=== PATIENT | male | born 1960 | race Two or more races ===

== ENCOUNTER 2024-10-01 13:06 | Outpatient (RCR) | payer OTHER, SELFPAY | END 2024-10-27 23:59 | disposition home or self-care (01) | LOC: SCTC 13:06 | PROVIDERS: PCP Specialist; Referring Provider Specialist; Visit Provider Radiology Therapeutic Radiology | DX: Z51.11 Encounter for antineoplastic chemotherapy (principal); C61 Malignant neoplasm of prostate; Z90.79 Acquired absence of other genital organ(s); Z92.3 Personal history of irradiation | CPT/HCPCS: 96402; J9217 ==

== ENCOUNTER → 2024-11-01 | Outpatient (CLI) | payer OTHER, SELFPAY ==
[2024-11-01 16:11] LABS: Basophils # (Auto) 0.1 Thou/mm3 (0.0-0.2); Basophils % (Auto) 1 % (0-2.5); Eosinophils # (Auto) 0.1 Thou/mm3 (0.0-0.5); Eosinophils % (Auto) 1 % (0-10); Hematocrit 36.8 % (41.0-53.0); Hemoglobin 12.6 g/dL (13.5-16.0); Immature Granulocytes % (Auto) 0 % (0-0); Immature Granulocytes Auto 0.01 Thou/mm3 (0.00-0.00); Lymphocytes # (Auto) 1.4 Thou/mm3 (1.0-4.8); Lymphocytes % (Auto) 17 % (10-50); Mean Corpuscular HGB Conc 34.2 g/dl (31.0-37.0); Mean Corpuscular Hemoglobin 29.6 pg (25.0-35.0); Mean Corpuscular Volume 87 fL (80-100); Monocytes # (Auto) 0.6 Thou/mm3 (0.0-0.8); Monocytes % (Auto) 8 % (0-12); Neutrophils # (Auto) 5.7 Thou/mm3 (1.8-7.7); Neutrophils % (Auto) 73 % (37-80); Nucleated Red Blood Cell % 0 /100 WBC (0); Platelet Count 228 Thou/mm3 (140-440); RDW Standard Deviation 38.7 fL (35.1-43.9); Red Blood Count 4.25 Miln/mm3 (4.50-5.90); White Blood Count 7.8 Thou/mm3 (3.8-10.6)
[2024-11-01 16:29] LABS: Alanine Aminotransferase 12 U/L (10-49); Albumin, Serum 4.3 gm/dL (3.4-4.8); Albumin/Globulin Ratio 2.2 (1.2-2.2); Alkaline Phosphatase 82 U/L (46-116); Anion Gap 8 (7-16); Aspartate Amino Transferase 20 U/L (0-34); BUN/Creatinine Ratio 17 Ratio (12-20); Bilirubin,Total 0.4 mg/dL (0.3-1.2); Blood Urea Nitrogen 17 mg/dL (9-23); Calcium 9.6 mg/dL (8.3-10.6); Calcium (Corrected) 9.6 mg/dL (8.5-10.1); Carbon Dioxide 27.2 mMol/L (20.0-31.0); Chloride 105 mMol/L (98-107); Glucose 100 mg/dL (74-106); Osmolality,Calculated 280 (275-295); Potassium 4.5 mMol/L (3.4-5.1); Prostate Specific Antigen < 0.10 ng/mL (0-4.00); Sodium 140 mMol/L (136-145); Total Protein 6.3 gm/dL (5.7-8.2); eGFR > 60 See Note
== END | disposition home or self-care (01) ==
LOC: SCTO 15:08
PROVIDERS: PCP Student in an Organized Health Care Education/Training Program; Referring Provider Internal Medicine Hematology & Oncology; Visit Provider Internal Medicine Hematology & Oncology
DX: C61 Malignant neoplasm of prostate (principal)
CPT/HCPCS: 36415; 80053; 84153; 85025

== ENCOUNTER 2024-11-05 10:17 | Outpatient (RCR) | payer OTHER, SELFPAY | END 2024-11-27 23:59 | disposition home or self-care (01) | LOC: SCTC 10:17 | PROVIDERS: Referring Provider Nurse Practitioner Family; Visit Provider Nurse Practitioner Family | DX: C61 Malignant neoplasm of prostate (principal); Z90.79 Acquired absence of other genital organ(s); Z92.3 Personal history of irradiation; Z79.818 Long term (current) use of other agents affecting estrogen receptors and estrogen levels; R42 Dizziness and giddiness; R51.9 Headache, unspecified | CPT/HCPCS: 99212; G0463 ==

== ENCOUNTER → 2024-12-20 | Outpatient (CLI) | payer BC, SELFPAY ==
--- NOTE | 2024-12-20 13:20 | XR_ITS ---
Examination: Bone densitometry Date and time of exam:December 20, 2024 1330 hours INDICATIONS: 64-year-old male with diagnosis age related osteoporosis, prednisone 4 years, prostate carcinoma diagnosis Technique: Lumbar spine and hip total bone mineralization values of an calculated. Peak reference and age match control results have been displayed. Findings: Lumbar spine total bone mineralization is1.022 gm/cm2. This is 0.6 standard deviations below peak reference. This is 0.1 standard deviations above age-matched controls. Hip total bone mineralization is 1.040 gm/cm2 This is 0.1 standard deviations below peak reference. This is 0.4 standard deviations above age-matched controls Impression: There is normal mineralization based on lumbar spine measurements. There is osteopenia based on hip measurements
== END | disposition home or self-care (01) ==
LOC: CDIM 13:09
PROVIDERS: Referring Provider Nurse Practitioner Family; Visit Provider Nurse Practitioner Family
DX: M85.88 Other specified disorders of bone density and structure, other site (principal)
CPT/HCPCS: 77080

== ENCOUNTER → 2024-12-26 | Outpatient (CLI) | payer BC, SELFPAY ==
[2024-12-26 13:24] LABS: Prostate Specific Antigen < 0.10 ng/mL (0-4.00)
[2024-12-26 13:36] LABS: Alanine Aminotransferase 9 U/L (10-49); Albumin, Serum 4.3 gm/dL (3.4-4.8); Alkaline Phosphatase 100 U/L (46-116); Anion Gap 7 (7-16); Aspartate Amino Transferase 12 U/L (0-34); BUN/Creatinine Ratio 16 Ratio (12-20); Bilirubin,Total 0.5 mg/dL (0.3-1.2); Blood Urea Nitrogen 16 mg/dL (9-23); Calcium 9.4 mg/dL (8.3-10.6); Calcium (Corrected) 9.4 mg/dL (8.5-10.1); Carbon Dioxide 28.1 mMol/L (20.0-31.0); Chloride 104 mMol/L (98-107); Globulin 2.1 gm/dL (2.3-3.5); Glucose 98 mg/dL (74-106); Osmolality,Calculated 278 (275-295); Potassium 4.2 mMol/L (3.4-5.1); Sodium 139 mMol/L (136-145); Total Protein 6.4 gm/dL (5.7-8.2); eGFR > 60 See Note
[2024-12-26 13:56] LABS: Basophils # (Auto) 0.1 Thou/mm3 (0.0-0.2); Basophils % (Auto) 1 % (0-2.5); Eosinophils # (Auto) 0.1 Thou/mm3 (0.0-0.5); Eosinophils % (Auto) 1 % (0-10); Hematocrit 38.3 % (41.0-53.0); Hemoglobin 12.9 g/dL (13.5-16.0); Immature Granulocytes % (Auto) 0 % (0-0); Immature Granulocytes Auto 0.02 Thou/mm3 (0.00-0.00); Lymphocytes # (Auto) 1.2 Thou/mm3 (1.0-4.8); Lymphocytes % (Auto) 14 % (10-50); Mean Corpuscular HGB Conc 33.7 g/dl (31.0-37.0); Mean Corpuscular Volume 89 fL (80-100); Monocytes # (Auto) 0.6 Thou/mm3 (0.0-0.8); Monocytes % (Auto) 7 % (0-12); Neutrophils # (Auto) 6.4 Thou/mm3 (1.8-7.7); Neutrophils % (Auto) 77 % (37-80); Nucleated Red Blood Cell % 0 /100 WBC (0); Platelet Count 256 Thou/mm3 (140-440); RDW Standard Deviation 39.5 fL (35.1-43.9); White Blood Count 8.3 Thou/mm3 (3.8-10.6)
== END | disposition home or self-care (01) ==
LOC: SCTO 12:26
PROVIDERS: PCP Student in an Organized Health Care Education/Training Program; Referring Provider Internal Medicine Hematology & Oncology; Visit Provider Internal Medicine Hematology & Oncology
DX: C61 Malignant neoplasm of prostate (principal)
CPT/HCPCS: 36415; 80053; 84153; 85025

== ENCOUNTER 2025-01-08 13:21 | Outpatient (RCR) | payer BC, SELFPAY ==
--- NOTE | 2025-01-09 15:31 | CTCFLWUP_ITS ---
Patient: DIRK BARGER : 1960 Page 2 of 2 FOLLOW UP NOTE DATE OF SERVICE: 01/08/2025 NAME: DIKR BARGER ACCOUNT: [id number] : 1960 AGE: 64 INTERVAL HISTORY: Patient denies any new complaints. Tolerating treatment well. ONCOLOGY HISTORY: DIAGNOSIS: Malignant neoplasm of prostate [ICD10] C61 Stage SARINA, pT3b, N1 Eric score 9 adenocarcinoma the prostate status post robotic radical prostatectomy (04/22/2020). Extraprostatic extension present. Lymphovascular as well as perineural invasion present. Margins positive. Urinary bladder neck invasion present. Left seminal vesicle invasion present. Status post radiation therapy. Currently patient is on Lupron, Zytiga and prednisone (06/10/2020?). DATE OF DIAGNOSIS: 04/22/2020 STAGE/TNM: Stage SARINA, pT3b, N1 Eric score 9 adenocarcinoma the prostate status post robotic radical prostatectomy TREATMENT HISTORY: Care?Plan Start?Date Cycle Day Intent Lupron?22.5?mg?q?3?mon 09/02/2020 1 90 Palliative PROLia?60mg?every?6?months 01/01/2025 1 180 Palliative HISTORY OF PRESENT ILLNESS: Mr. Barger is here at [facility] cancer Center. Labs from 11/01/2024 show PSA <0.10. Patient is receiving Lupron every 3 months, Zytiga taking Zytiga 250 mg daily and prednisone 5 mg daily. Patient has follow-up with neurologist on 11/07/2024 for complaints of dizziness and headaches for a long time. Denies any new complaints. Mr. Barger denies any cough or chest pain. HISTORY: Dirk Barger is a 64-year-old [place] speaking male without any significant past medical history has the following oncology history. Patient recently had routine screening PSA done by Dr. Angela Nation. He was found to have an elevated PSA of 60. 04/22/2020: Patient had robotic radical prostatectomy with bilateral extended lymph node dissection at [facility] by Dr. Kvng Rich. Pathology showed stage Sarina [place] score 9 prostate cancer as described below. PSA trend: 06/09/2020: Less than 0.10. 08/13/2020: PSA less than 0.10. 06/09/2020?07/30/2020: Patient received 6840 cGy radiation to prostate. 06/10/2020: Patient received first Lupron 22.5 mg IM at [facility]. 06/16/2020: Patient is started on Zytiga and prednisone. 07/01/2020: Bone scan? x-ray of left shoulder?5 mm sclerotic focus in the left humeral neck. 12/01/2020: PSA less than 0.10. 12/04/2020: Patient received Eligard 22.5 mg subcu. 02/27/2021: PSA less than 0.10. 03/04/2021: Patient received Eligard 22.5 mg subcu. 05/20/2021: PSA less than 0.10 06/03/2021: Patient received Lupron 22.5 mg IM. 08/31/2021: PSA less than 0.10. 11/19/2021: PSA less than 0.10. 02/24/2021: PSA less than 0.10. 09/13/2022 PSA less than 0.00 03/23/2023: PSA less than 0.10. 09/14/2023: PSA less than 0.10. 02/01/2024: PSA less than 0.10. 02/16/2024: CT scan of the abdomen and pelvis with IV contrast 06/21/2024: PSA less than 0.10 08/01/2024: Bone scan? 08/10/2024: X-ray lumbar spine-negative for osteoblastic disease 08/17/2024: MRI left shoulder-no findings of osseous metastatic disease 11/05/2024: PSA less than 0.10 OTHER MEDICAL HISTORY/CONDITIONS: FAMILY HISTORY: ?Clone Family Hx? SOCIAL HISTORY: MEDICATIONS: 1. Leydi - 30 mg 1 tab Daily 2. Citracal + D Slow Release - 600 mg-12.5 mcg (500 unit) 1 tab one tab po twice a day 3. omeprazole - 20 mg 1 Daily 4. prednisone - 5 mg 1 tab 1 tab po q daily 5. TylenoL - 500 mg 1 Capsule As needed 6. Vitamin B12 - 100 mcg 1 tab Daily 7. vitamin E (dl, acetate) - 450 mg (1,000 unit) 1 Capsule Daily 8. Zytiga - 250 mg 1 tab once daily?[place]ra Meds? Medications Last Reconciled by Brenda Amor MA on 01/08/2025 ALLERGIES: No Known Allergies REVIEW OF SYSTEMS: A complete 14-point review of systems was performed and is negative except as noted in interval history. PHYSICAL EXAMINATION:?CloneBlock PE? VITAL SIGNS: Temperature?98.2, B/P?149/98, Oxygen?Saturation?98% Weight?204?lbs (Change?since?01/01/25:?1.2?lbs) PAIN: 2 - Mild pain ECOG Performance Status: 0 - Asymptomatic and fully active Neuro: Alert and oriented x 4 Conjunctiva white. Neck is supple. No adenopathy. Chest clear to auscultation. CVS rhythm regular. Abdomen is soft. No tenderness Extremities no clubbing . LABORATORY DATA: I have personally reviewed and interpreted each of the patient?s relevant lab tests, abnormal findings are below: Date 12/26/24 ??GLUCOSE,RANDOM?(mg/dL) 98 ??BLOOD?UREA?NITROGEN?(mg/dL) 16 ??CREATININE?(mg/dL) 1.00 ??SODIUM?(mmol/L) 139 ??POTASSIUM?(mmol/L) 4.2 ??CHLORIDE?(mmol/L) 104 ??CrCl?(CandG)?(ml/min) 97.02 ??AST/SGOT?(Unit/L) 12 ??ALT/SGPT?(Unit/L) 9?L ??ALKALINE?PHOSPHATASE?(Unit/L) 100 ??BILIRUBIN,?TOTAL?(mg/dL) 0.5 ??PROTEIN?TOTAL?(gm/dl) 6.4 ??ALBUMIN,?SERUM?(gm/dl) 4.3 ??GLOBULIN?(gm/dl) 2.1?L ??ALBUMIN/GLOBULIN?RATIO 2.0 ??CALCIUM,?SERUM?(mg/dL) 9.4 ??CALCIUM?SERUM?(CORRECTED)?(mg/dL) 9.4 ASSESSMENT/PLAN: #1Stage SARINA, pT3b, N1 [place] score 9 adenocarcinoma the prostate status post robotic radical prostatectomy (04/22/2020). Extraprostatic extension present. Lymphovascular as well as perineural invasion present. Margins positive. Urinary bladder neck invasion present. Left seminal vesicle invasion present. Status post radiation therapy to the prostate bed as described above. Patient received Lupron 22.5 mg IMCT scan of the abdomen and pelvis with contrast was negative for metastatic disease. PSA is less than 0.10. Currently he is on Lupron 22.5 mg every 3 months, Zytiga 250 mg p.o. daily as well as prednisone 5 mg p.o. daily..The patient stopped Zytiga and prednisone 3 weeks ago due to dizziness and fatigue. Unfortunately those symptoms have not gotten any better Zytiga and prednisone was restarted Patient has been on and off therapy since 2019 Patient did not had disease involving bone or any metastatic disease His indication for treatment will be for maximum 2 years Discussed with Mr. Barger and will stop Zytiga prednisone Lupron Patient can continue Prolia Continue to monitor Mr. Barger with a CBC CMP PSA CBC CMP PSA every 2 months Continue Prolia RETURN TO CLINIC: I will see him back in the clinic in 2 months. Patient can be given every 3 months appointment at the next visit for 1 year followed by every 6-month visit for 5 years for active surveillance BILLING AND COMPLIANCE: I reviewed external records from providers outside my specialty as summarized above. I spent a total of 50 minutes on this patient?s care on the day of their visit excluding time spent related to any billed procedures. This time includes time spent with the patient as well as time spent documenting in the medical record, reviewing patients records and tests, obtaining history, placing orders, communicating with other healthcare professionals, counseling the patient, family or caregiver, and/or care coordination for the diagnoses above. Electronically Signed by: Ivan Parker MD T: 3:29 PM CC: Kavin?Rios? PCP: No Primary/family, Physician Referring: Ivan Parker This document was completed utilizing speech recognition software. Grammatical errors, random word insertions, pronoun errors, and incomplete sentences are an occasional consequence of this system due to software limitations, ambient noise, and hardware issues. Any formal questions or concerns about the content, text or information contained within the body of this dictation should be directly addressed to the provider for clarification.
== END 2025-01-25 23:59 | disposition home or self-care (01) ==
LOC: SCTC 13:21
PROVIDERS: Referring Provider Internal Medicine Hematology & Oncology; Visit Provider Internal Medicine Hematology & Oncology
DX: Z51.11 Encounter for antineoplastic chemotherapy (principal); C61 Malignant neoplasm of prostate; Z90.79 Acquired absence of other genital organ(s); Z79.818 Long term (current) use of other agents affecting estrogen receptors and estrogen levels; Z92.3 Personal history of irradiation
CPT/HCPCS: 96402; 99213; J9217; G0463

== ENCOUNTER 2025-02-11 13:48 | Outpatient (RCR) | payer BC, SELFPAY ==
--- NOTE | 2025-03-03 19:55 | CTCFLWUP_ITS ---
Patient: DIRK BARGER : 1960 Page 5 of 7 FOLLOW UP NOTE DATE OF SERVICE: 02/11/2025 NAME: DIRK BARGER ACCOUNT: [id number] : 1960 AGE: 64 INTERVAL HISTORY: Patient denies any new complaints. Tolerating treatment well. ONCOLOGY HISTORY: DIAGNOSIS: Malignant neoplasm of prostate [ICD10] C61 Stage SARINA, pT3b, N1 Eric score 9 adenocarcinoma the prostate status post robotic radical prostatectomy (04/22/2020). Extraprostatic extension present. Lymphovascular as well as perineural invasion present. Margins positive. Urinary bladder neck invasion present. Left seminal vesicle invasion present. Status post radiation therapy. Currently patient is on Lupron, Zytiga and prednisone (06/10/2020?). DATE OF DIAGNOSIS: 04/22/2020 STAGE/TNM: Stage SARINA, pT3b, N1 Eric score 9 adenocarcinoma the prostate status post robotic radical prostatectomy TREATMENT HISTORY: Care?Plan Start?Date Cycle Day Intent Lupron?22.5?mg?q?3?mon 09/02/2020 1 90 Palliative PROLia?60mg?every?6?months 01/01/2025 1 180 Palliative Reclast 01/17/2025 1 365 Palliative HISTORY OF PRESENT ILLNESS: Mr. Barger is here at [facility]. Labs from 11/01/2024 show PSA <0.10. Patient is receiving Lupron every 3 months, Zytiga taking Zytiga 250 mg daily and prednisone 5 mg daily. Patient has follow-up with neurologist on 11/07/2024 for complaints of dizziness and headaches for a long time. Denies any new complaints. Mr. Barger denies any cough or chest pain. HISTORY: Dirk Barger is a 64-year-old [place] speaking male without any significant past medical history has the following oncology history. Patient recently had routine screening PSA done by Dr. Angela Nation. He was found to have an elevated PSA of 60. 04/22/2020: Patient had robotic radical prostatectomy with bilateral extended lymph node dissection at [facility] by Dr. Kvng Rich. Pathology showed stage Sarina [place] score 9 prostate cancer as described below. PSA trend: 06/09/2020: Less than 0.10. 08/13/2020: PSA less than 0.10. 06/09/2020?07/30/2020: Patient received 6840 cGy radiation to prostate. 06/10/2020: Patient received first Lupron 22.5 mg IM at [facility]. 06/16/2020: Patient is started on Zytiga and prednisone. 07/01/2020: Bone scan? x-ray of left shoulder?5 mm sclerotic focus in the left humeral neck. 12/01/2020: PSA less than 0.10. 12/04/2020: Patient received Eligard 22.5 mg subcu. 02/27/2021: PSA less than 0.10. 03/04/2021: Patient received Eligard 22.5 mg subcu. 05/20/2021: PSA less than 0.10 06/03/2021: Patient received Lupron 22.5 mg IM. 08/31/2021: PSA less than 0.10. 11/19/2021: PSA less than 0.10. 02/24/2021: PSA less than 0.10. 09/13/2022 PSA less than 0.00 03/23/2023: PSA less than 0.10. 09/14/2023: PSA less than 0.10. 02/01/2024: PSA less than 0.10. 02/16/2024: CT scan of the abdomen and pelvis with IV contrast 06/21/2024: PSA less than 0.10 08/01/2024: Bone scan? 08/10/2024: X-ray lumbar spine-negative for osteoblastic disease 08/17/2024: MRI left shoulder-no findings of osseous metastatic disease 11/05/2024: PSA less than 0.10 OTHER MEDICAL HISTORY/CONDITIONS: FAMILY HISTORY: SOCIAL HISTORY: MEDICATIONS: 1. Leydi - 30 mg 1 tab Daily 2. Flonase - 50 mcg/actuation As directed 3. omeprazole - 20 mg 1 Daily 4. prednisone - 5 mg 1 tab 1 tab po q daily 5. TylenoL - 500 mg 1 Capsule As needed 6. Zytiga - 250 mg 1 tab once daily Medications Last Reconciled by Inessa Lazaro MA on 02/11/2025 ALLERGIES: No Known Allergies REVIEW OF SYSTEMS: A complete 14-point review of systems was performed and is negative except as noted in interval history. PHYSICAL EXAMINATION: VITAL SIGNS: Temperature?98.7, B/P?130/81, Oxygen?Saturation?98% Weight?204.8?lbs PAIN: 0 - No pain ECOG Performance Status: None Neuro: Alert and oriented x 4 Conjunctiva white. Neck is supple. No adenopathy. Chest clear to auscultation. CVS rhythm regular. Abdomen is soft. No tenderness Extremities no clubbing . LABORATORY DATA: I have personally reviewed and interpreted each of the patient?s relevant lab tests, abnormal findings are below: Date 11/01/24 12/26/24 ??WHITE?BLOOD?COUNT?(Thou/mm3) 7.8 8.3 ??RED?BLOOD?COUNT?(Miln/mm3) 4.25?L 4.30?L ??HEMOGLOBIN?(gm/dl) 12.6?L 12.9?L ??HEMATOCRIT?(%) 36.8?L 38.3?L ??PLATELET?COUNT?(Thou/mm3) 228 256 ??NEUTROPHILS?%,?AUTO?(%) 73 77 ??LYMPH?%,?AUTO?(%) 17 14 ??NEUTROPHILS,?AUTO?(Thou/mm3) 5.7 6.4 ??GLUCOSE,RANDOM?(mg/dL) 100 98 ??BLOOD?UREA?NITROGEN?(mg/dL) 17 16 ??CREATININE?(mg/dL) 1.00 1.00 ??SODIUM?(mmol/L) 140 139 ??POTASSIUM?(mmol/L) 4.5 4.2 ??CHLORIDE?(mmol/L) 105 104 ??CrCl?(CandG)?(ml/min) 99.35 97.02 ??AST/SGOT?(Unit/L) 20 12 ??ALT/SGPT?(Unit/L) 12 9?L ??ALKALINE?PHOSPHATASE?(Unit/L) 82 100 ??BILIRUBIN,?TOTAL?(mg/dL) 0.4 0.5 ??PROTEIN?TOTAL?(gm/dl) 6.3 6.4 ??ALBUMIN,?SERUM?(gm/dl) 4.3 4.3 ??GLOBULIN?(gm/dl) 2.0?L 2.1?L ??ALBUMIN/GLOBULIN?RATIO 2.2 2.0 ??CALCIUM,?SERUM?(mg/dL) 9.6 9.4 ??CALCIUM?SERUM?(CORRECTED)?(mg/dL) 9.6 9.4 ASSESSMENT/PLAN: #1Stage SARINA, pT3b, N1 [place] score 9 adenocarcinoma the prostate status post robotic radical prostatectomy (04/22/2020). Extraprostatic extension present. Lymphovascular as well as perineural invasion present. Margins positive. Urinary bladder neck invasion present. Left seminal vesicle invasion present. Status post radiation therapy to the prostate bed as described above. Patient received Lupron 22.5 mg IMCT scan of the abdomen and pelvis with contrast was negative for metastatic disease. PSA is less than 0.10. Currently he is on Lupron 22.5 mg every 3 months, Zytiga 250 mg p.o. daily as well as prednisone 5 mg p.o. daily..The patient stopped Zytiga and prednisone 3 weeks ago due to dizziness and fatigue. Unfortunately those symptoms have not gotten any better Zytiga and prednisone was restarted Patient has been on and off therapy since 2019 Patient did not had disease involving bone or any metastatic disease His indication for treatment will be for maximum 2 years Discussed with Mr. Barger and will stop Zytiga prednisone Lupron Patient can continue Prolia Continue to monitor Mr. Barger with a CBC CMP PSA Counselled patient and daughter that n further treatment indicated CBC CMP PSA every 2 months Continue Prolia ORDERS: Order # Description [id number] Comprehensive Metabolic Panel - 12 + CBC with Auto Diff + PSA + MD Follow Up 3 Months [id number] CBC + Comprehensive Metabolic Panel [id number] Lab Appointment [id number] CBC + Comprehensive Metabolic Panel [id number] Lab Appointment [id number] CBC + Comprehensive Metabolic Panel [id number] Lab Appointment [id number] CBC + Comprehensive Metabolic Panel [id number] Lab Appointment [id number] CBC + Comprehensive Metabolic Panel [id number] Lab Appointment RETURN TO CLINIC: BILLING AND COMPLIANCE: I reviewed external records from providers outside my specialty as summarized above. I spent a total of 50 minutes on this patient?s care on the day of their visit excluding time spent related to any billed procedures. This time includes time spent with the patient as well as time spent documenting in the medical record, reviewing patients records and tests, obtaining history, placing orders, communicating with other healthcare professionals, counseling the patient, family or caregiver, and/or care coordination for the diagnoses above. Electronically Signed by: {Object.Sanct_ID*[email or web address]@M}, {Object.Sanct_ID*[email or web address]@U} D: {Object.Sanct_Date} T: {Object.Sanct_Time} CC: Kavin?Rios,? PCP: No Primary/family, Physician Referring: Ivan Parker This document was completed utilizing speech recognition software. Grammatical errors, random word insertions, pronoun errors, and incomplete sentences are an occasional consequence of this system due to software limitations, ambient noise, and hardware issues. Any formal questions or concerns about the content, text or information contained within the body of this dictation should be directly addressed to the provider for clarification.
== END 2025-02-25 23:59 | disposition home or self-care (01) ==
LOC: SCTC 13:48
PROVIDERS: Referring Provider Internal Medicine Hematology & Oncology; Visit Provider Internal Medicine Hematology & Oncology
DX: C61 Malignant neoplasm of prostate (principal); Z90.79 Acquired absence of other genital organ(s); Z92.3 Personal history of irradiation; Z79.818 Long term (current) use of other agents affecting estrogen receptors and estrogen levels
CPT/HCPCS: 99213; G0463

== ENCOUNTER → 2025-03-26 | Outpatient (CLI) | payer BC, SELFPAY ==
[2025-03-26 11:50] LABS: Basophils # (Auto) 0.1 Thou/mm3 (0.0-0.2); Basophils % (Auto) 1 % (0-2.5); Eosinophils # (Auto) 0.2 Thou/mm3 (0.0-0.5); Eosinophils % (Auto) 3 % (0-10); Hematocrit 35.9 % (41.0-53.0); Hemoglobin 12.3 g/dL (13.5-16.0); Immature Granulocytes % (Auto) 0 % (0-0); Immature Granulocytes Auto 0.02 Thou/mm3 (0.00-0.00); Lymphocytes # (Auto) 1.2 Thou/mm3 (1.0-4.8); Lymphocytes % (Auto) 16 % (10-50); Mean Corpuscular HGB Conc 34.3 g/dl (31.0-37.0); Mean Corpuscular Hemoglobin 30.4 pg (25.0-35.0); Mean Corpuscular Volume 89 fL (80-100); Monocytes # (Auto) 0.6 Thou/mm3 (0.0-0.8); Monocytes % (Auto) 9 % (0-12); Neutrophils # (Auto) 5.4 Thou/mm3 (1.8-7.7); Neutrophils % (Auto) 72 % (37-80); Nucleated Red Blood Cell % 0 /100 WBC (0); Platelet Count 245 Thou/mm3 (140-440); Red Blood Count 4.04 Miln/mm3 (4.50-5.90); White Blood Count 7.6 Thou/mm3 (3.8-10.6)
[2025-03-26 12:03] LABS: Alanine Aminotransferase 14 U/L (10-49); Albumin/Globulin Ratio 1.7 (1.2-2.2); Alkaline Phosphatase 83 U/L (46-116); Anion Gap 6 (7-16); Aspartate Amino Transferase 21 U/L (0-34); BUN/Creatinine Ratio 18 Ratio (12-20); Bilirubin,Total 0.4 mg/dL (0.3-1.2); Blood Urea Nitrogen 18 mg/dL (9-23); Calcium 9.1 mg/dL (8.3-10.6); Calcium (Corrected) 9.1 mg/dL (8.5-10.1); Carbon Dioxide 26.9 mMol/L (20.0-31.0); Chloride 106 mMol/L (98-107); Globulin 2.3 gm/dL (2.3-3.5); Glucose 123 mg/dL (74-106); Osmolality,Calculated 280 (275-295); Potassium 4.1 mMol/L (3.4-5.1); Sodium 139 mMol/L (136-145); Total Protein 6.3 gm/dL (5.7-8.2); eGFR > 60 See Note
[2025-03-26 12:09] LABS: Prostate Specific Antigen < 0.00 ng/mL (0-4.00)
== END | disposition home or self-care (01) ==
LOC: SCTO 10:13
PROVIDERS: Referring Provider Internal Medicine Hematology & Oncology; Visit Provider Internal Medicine Hematology & Oncology
DX: C61 Malignant neoplasm of prostate (principal)
CPT/HCPCS: 36415; 80053; 84153; 85025

== ENCOUNTER → 2025-05-13 | Outpatient (CLI) | payer BC, SELFPAY ==
[2025-05-13 13:47] LABS: Basophils # (Auto) 0.1 Thou/mm3 (0.0-0.2); Basophils % (Auto) 1 % (0-2.5); Eosinophils # (Auto) 0.1 Thou/mm3 (0.0-0.5); Eosinophils % (Auto) 2 % (0-10); Hematocrit 35.1 % (41.0-53.0); Immature Granulocytes % (Auto) 1 % (0-0); Immature Granulocytes Auto 0.03 Thou/mm3 (0.00-0.00); Lymphocytes # (Auto) 1.3 Thou/mm3 (1.0-4.8); Lymphocytes % (Auto) 20 % (10-50); Mean Corpuscular HGB Conc 34.2 g/dl (31.0-37.0); Mean Corpuscular Hemoglobin 29.9 pg (25.0-35.0); Mean Corpuscular Volume 88 fL (80-100); Monocytes # (Auto) 0.6 Thou/mm3 (0.0-0.8); Monocytes % (Auto) 9 % (0-12); Neutrophils # (Auto) 4.4 Thou/mm3 (1.8-7.7); Neutrophils % (Auto) 68 % (37-80); Nucleated Red Blood Cell % 0 /100 WBC (0); Platelet Count 247 Thou/mm3 (140-440); RDW Standard Deviation 39.4 fL (35.1-43.9); Red Blood Count 4.01 Miln/mm3 (4.50-5.90); White Blood Count 6.5 Thou/mm3 (3.8-10.6)
[2025-05-13 14:07] LABS: Prostate Specific Antigen < 0.10 ng/mL (0-4.00)
[2025-05-13 14:28] LABS: Alanine Aminotransferase 9 U/L (10-49); Albumin/Globulin Ratio 1.9 (1.2-2.2); Alkaline Phosphatase 89 U/L (46-116); Anion Gap 9 (7-16); Aspartate Amino Transferase 23 U/L (0-34); BUN/Creatinine Ratio 17 Ratio (12-20); Bilirubin,Total 0.3 mg/dL (0.3-1.2); Blood Urea Nitrogen 19 mg/dL (9-23); Calcium 9.1 mg/dL (8.3-10.6); Calcium (Corrected) 9.1 mg/dL (8.5-10.1); Chloride 107 mMol/L (98-107); Creatinine (Component) 1.1 mg/dL (0.6-1.3); Globulin 2.1 gm/dL (2.3-3.5); Glucose 101 mg/dL (74-106); Osmolality,Calculated 287 (275-295); Potassium 4.3 mMol/L (3.4-5.1); Sodium 143 mMol/L (136-145); Total Protein 6.1 gm/dL (5.7-8.2); eGFR > 60 See Note
== END | disposition home or self-care (01) ==
LOC: COPL 11:48 → SCTO 11:56
PROVIDERS: PCP Student in an Organized Health Care Education/Training Program; Referring Provider Internal Medicine Hematology & Oncology; Visit Provider Internal Medicine Hematology & Oncology
DX: C61 Malignant neoplasm of prostate (principal)
CPT/HCPCS: 36415; 80053; 84153; 85025

== ENCOUNTER 2025-05-14 10:37 | Outpatient (RCR) | payer BC, SELFPAY ==
--- NOTE | 2025-06-24 13:00 | CTCFLWUP_ITS ---
Patient: DIRK BARGER : 1960 Page 2 of 2 FOLLOW UP NOTE DATE OF SERVICE: 05/14/2025 NAME: DIRK BARGER ACCOUNT: [id number] : 1960 AGE: 64 INTERVAL HISTORY: Patient denies any new complaints. Tolerating treatment well. ONCOLOGY HISTORY: DIAGNOSIS: Malignant neoplasm of prostate [ICD10] C61 Stage SARINA, pT3b, N1 Eric score 9 adenocarcinoma the prostate status post robotic radical prostatectomy (04/22/2020). Extraprostatic extension present. Lymphovascular as well as perineural invasion present. Margins positive. Urinary bladder neck invasion present. Left seminal vesicle invasion present. Status post radiation therapy. Currently patient is on Lupron, Zytiga and prednisone (06/10/2020?). DATE OF DIAGNOSIS: 04/22/2020 STAGE/TNM: Stage SARINA, pT3b, N1 Eric score 9 adenocarcinoma the prostate status post robotic radical prostatectomy TREATMENT HISTORY: Care?Plan Start?Date Cycle Day Intent Lupron?22.5?mg?q?3?mon 09/02/2020 1 90 Palliative PROLia?60mg?every?6?months 01/01/2025 1 180 Palliative Reclast 01/17/2025 1 365 Palliative HISTORY OF PRESENT ILLNESS: Mr. Barger is here at [facility]. Labs from 11/01/2024 show PSA <0.10. Patient is receiving Lupron every 3 months, Zytiga taking Zytiga 250 mg daily and prednisone 5 mg daily. Patient has follow-up with neurologist on 11/07/2024 for complaints of dizziness and headaches for a long time. Denies any new complaints. Mr. Barger denies any cough or chest pain. HISTORY: Dirk Barger is a 64-year-old [place] speaking male without any significant past medical history has the following oncology history. Patient recently had routine screening PSA done by Dr. Angela Nation. He was found to have an elevated PSA of 60. 04/22/2020: Patient had robotic radical prostatectomy with bilateral extended lymph node dissection at [facility] by Dr. Kvng Rich. Pathology showed stage Sarina [place] score 9 prostate cancer as described below. PSA trend: 06/09/2020: Less than 0.10. 08/13/2020: PSA less than 0.10. 06/09/2020?07/30/2020: Patient received 6840 cGy radiation to prostate. 06/10/2020: Patient received first Lupron 22.5 mg IM at [facility]. 06/16/2020: Patient is started on Zytiga and prednisone. 07/01/2020: Bone scan? x-ray of left shoulder?5 mm sclerotic focus in the left humeral neck. 12/01/2020: PSA less than 0.10. 12/04/2020: Patient received Eligard 22.5 mg subcu. 02/27/2021: PSA less than 0.10. 03/04/2021: Patient received Eligard 22.5 mg subcu. 05/20/2021: PSA less than 0.10 06/03/2021: Patient received Lupron 22.5 mg IM. 08/31/2021: PSA less than 0.10. 11/19/2021: PSA less than 0.10. 02/24/2021: PSA less than 0.10. 09/13/2022 PSA less than 0.00 03/23/2023: PSA less than 0.10. 09/14/2023: PSA less than 0.10. 02/01/2024: PSA less than 0.10. 02/16/2024: CT scan of the abdomen and pelvis with IV contrast 06/21/2024: PSA less than 0.10 08/01/2024: Bone scan? 08/10/2024: X-ray lumbar spine-negative for osteoblastic disease 08/17/2024: MRI left shoulder-no findings of osseous metastatic disease 11/05/2024: PSA less than 0.10 OTHER MEDICAL HISTORY/CONDITIONS: FAMILY HISTORY: SOCIAL HISTORY: MEDICATIONS: 1. Leydi - 30 mg 1 tab Daily 2. Flonase - 50 mcg/actuation As directed 3. omeprazole - 20 mg 1 Daily 4. Sinemet - 1 Four times a day 5. TylenoL - 500 mg 1 Capsule As needed Medications Last Reconciled by Brenda Amor MA on 05/14/2025 ALLERGIES: No Known Allergies REVIEW OF SYSTEMS: A complete 14-point review of systems was performed and is negative except as noted in interval history. PHYSICAL EXAMINATION: VITAL SIGNS: Temperature?97.1, B/P?107/71, Oxygen?Saturation?97% Weight?202?lbs PAIN: 0 - No pain ECOG Performance Status: 0 - Asymptomatic and fully active Neuro: Alert and oriented x 4 Conjunctiva white. Neck is supple. No adenopathy. Chest clear to auscultation. CVS rhythm regular. Abdomen is soft. No tenderness Extremities no clubbing . LABORATORY DATA: I have personally reviewed and interpreted each of the patient?s relevant lab tests, abnormal findings are below: Date 03/26/25 05/13/25 ??WHITE?BLOOD?COUNT?(Thou/mm3) 7.6 6.5 ??RED?BLOOD?COUNT?(Miln/mm3) 4.04?L 4.01?L ??HEMOGLOBIN?(gm/dl) 12.3?L 12.0?L ??HEMATOCRIT?(%) 35.9?L 35.1?L ??PLATELET?COUNT?(Thou/mm3) 245 247 ??NEUTROPHILS?%,?AUTO?(%) 72 68 ??LYMPH?%,?AUTO?(%) 16 20 ??NEUTROPHILS,?AUTO?(Thou/mm3) 5.4 4.4 ??GLUCOSE,RANDOM?(mg/dL) 123?H 101 ??BLOOD?UREA?NITROGEN?(mg/dL) 18 19 ??CREATININE?(mg/dL) 1.00 1.10 ??SODIUM?(mmol/L) 139 143 ??POTASSIUM?(mmol/L) 4.1 4.3 ??CHLORIDE?(mmol/L) 106 107 ??CrCl?(CandG)?(ml/min) 99.35 90.32 ??AST/SGOT?(Unit/L) 21 23 ??ALT/SGPT?(Unit/L) 14 9?L ??ALKALINE?PHOSPHATASE?(Unit/L) 83 89 ??BILIRUBIN,?TOTAL?(mg/dL) 0.4 0.3 ??PROTEIN?TOTAL?(gm/dl) 6.3 6.1 ??ALBUMIN,?SERUM?(gm/dl) 4.0 4.0 ??GLOBULIN?(gm/dl) 2.3 2.1?L ??ALBUMIN/GLOBULIN?RATIO 1.7 1.9 ??CALCIUM,?SERUM?(mg/dL) 9.1 9.1 ??CALCIUM?SERUM?(CORRECTED)?(mg/dL) 9.1 9.1 ASSESSMENT/PLAN: #1Stage SARINA, pT3b, N1 Eric score 9 adenocarcinoma the prostate status post robotic radical prostatectomy (04/22/2020). Extraprostatic extension present. Lymphovascular as well as perineural invasion present. Margins positive. Urinary bladder neck invasion present. Left seminal vesicle invasion present. Status post radiation therapy to the prostate bed as described above. Patient received Lupron 22.5 mg IMCT scan of the abdomen and pelvis with contrast was negative for metastatic disease. PSA is less than 0.10. Currently he is on Lupron 22.5 mg every 3 months, Zytiga 250 mg p.o. daily as well as prednisone 5 mg p.o. daily..The patient stopped Zytiga and prednisone 3 weeks ago due to dizziness and fatigue. Unfortunately those symptoms have not gotten any better Zytiga and prednisone was restarted Patient has been on and off therapy since 2019 Patient did not had disease involving bone or any metastatic disease His indication for treatment will be for maximum 2 years Discussed with Mr. Barger and will stop Zytiga prednisone Lupron Patient can continue Prolia Continue to monitor Mr. Barger with a CBC CMP PSA Counselled patient and daughter that n further treatment indicated CBC CMP PSA every 2 months Continue Prolia RETURN TO CLINIC: I reviewed the diagnosis, prognosis, and recommended treatment/procedure options with the patient (and/or their legal artists' booking representative), including the potential benefits, risks, side effects and alternative therapies. We also discussed the option of no treatment and the possibility of clinical trial participation, if applicable. All questions were addressed, and they demonstrated understanding. They provided informed consent to proceed with the proposed plan of care. BILLING AND COMPLIANCE: I reviewed external records from providers outside my specialty as summarized above. I spent a total of 50 minutes on this patient?s care on the day of their visit excluding time spent related to any billed procedures. This time includes time spent with the patient as well as time spent documenting in the medical record, reviewing patients records and tests, obtaining history, placing orders, communicating with other healthcare professionals, counseling the patient, family or caregiver, and/or care coordination for the diagnoses above. Electronically Signed by: Ivan Parker MD T: 12:58 PM CC: Kavin?Rios,? PCP: Ivan Parker Referring: Ivan Parker This document was completed utilizing speech recognition software. Grammatical errors, random word insertions, pronoun errors, and incomplete sentences are an occasional consequence of this system due to software limitations, ambient noise, and hardware issues. Any formal questions or concerns about the content, text or information contained within the body of this dictation should be directly addressed to the provider for clarification.
== END 2025-05-27 23:59 | disposition home or self-care (01) ==
LOC: SCTC 10:37
PROVIDERS: PCP Student in an Organized Health Care Education/Training Program; Referring Provider Internal Medicine Hematology & Oncology; Visit Provider Internal Medicine Hematology & Oncology
DX: C61 Malignant neoplasm of prostate (principal); Z90.79 Acquired absence of other genital organ(s); Z92.3 Personal history of irradiation; Z79.818 Long term (current) use of other agents affecting estrogen receptors and estrogen levels
CPT/HCPCS: 99213; G0463

== ENCOUNTER → 2025-08-09 | Outpatient (CLI) | payer BC, SELFPAY ==
[2025-08-09 11:42] LABS: Basophils # (Auto) 0.1 Thou/mm3 (0.0-0.2); Basophils % (Auto) 1 % (0-2.5); Eosinophils # (Auto) 0.2 Thou/mm3 (0.0-0.5); Eosinophils % (Auto) 2 % (0-10); Hematocrit 38.4 % (41.0-53.0); Hemoglobin 13.1 g/dL (13.5-16.0); Immature Granulocytes Auto 0.02 Thou/mm3 (0.00-0.00); Lymphocytes # (Auto) 1.6 Thou/mm3 (1.0-4.8); Lymphocytes % (Auto) 21 % (10-50); Mean Corpuscular HGB Conc 34.1 g/dl (31.0-37.0); Mean Corpuscular Hemoglobin 30.5 pg (25.0-35.0); Mean Corpuscular Volume 90 fL (80-100); Monocytes # (Auto) 0.6 Thou/mm3 (0.0-0.8); Monocytes % (Auto) 8 % (0-12); Neutrophils # (Auto) 4.9 Thou/mm3 (1.8-7.7); Neutrophils % (Auto) 68 % (37-80); Nucleated Red Blood Cell # 0.00 Thou/mm3 (0.00-0.00); Nucleated Red Blood Cell % 0 /100 WBC (0); Platelet Count 254 Thou/mm3 (140-440); RDW Standard Deviation 39.5 fL (35.1-43.9); Red Blood Count 4.29 Miln/mm3 (4.50-5.90); White Blood Count 7.2 Thou/mm3 (3.8-10.6)
[2025-08-09 11:50] LABS: Prostate Specific Antigen < 0.10 ng/mL (0-4.00)
[2025-08-09 11:51] LABS: Alanine Aminotransferase 14 U/L (10-49); Albumin, Serum 4.2 gm/dL (3.4-4.8); Albumin/Globulin Ratio 1.8 (1.2-2.2); Alkaline Phosphatase 87 U/L (46-116); Anion Gap 8 (7-16); Aspartate Amino Transferase 15 U/L (0-34); BUN/Creatinine Ratio 13 Ratio (12-20); Bilirubin,Total 0.4 mg/dL (0.3-1.2); Blood Urea Nitrogen 14 mg/dL (9-23); Calcium 9.9 mg/dL (8.3-10.6); Calcium (Corrected) 9.9 mg/dL (8.5-10.1); Carbon Dioxide 28.9 mMol/L (20.0-31.0); Chloride 106 mMol/L (98-107); Creatinine (Component) 1.1 mg/dL (0.6-1.3); Globulin 2.4 gm/dL (2.3-3.5); Glucose 99 mg/dL (74-106); Osmolality,Calculated 285 (275-295); Potassium 4.6 mMol/L (3.4-5.1); Sodium 143 mMol/L (136-145); Total Protein 6.6 gm/dL (5.7-8.2); eGFR > 60 See Note
== END | disposition home or self-care (01) ==
LOC: SCTO 10:22
PROVIDERS: PCP Student in an Organized Health Care Education/Training Program; Referring Provider Internal Medicine Hematology & Oncology; Visit Provider Internal Medicine Hematology & Oncology
DX: C61 Malignant neoplasm of prostate (principal)
CPT/HCPCS: 36415; 80053; 84153; 85025

== ENCOUNTER 2025-08-14 10:49 | Outpatient (RCR) | payer BC, SELFPAY ==
--- NOTE | 2025-08-14 14:12 | CTCFLWUP_ITS ---
Patient: DIRK BARGER : 1960 Page 4 of 6 FOLLOW UP NOTE DATE OF SERVICE: 08/14/2025 NAME: DIRK BARGER ACCOUNT: [id number] : 1960 AGE: 64 INTERVAL HISTORY: Patient still feels very fatigued and tired. He also has been feeling dizziness. Patient's Xtandi and Lupron was stopped at the last visit. ONCOLOGY HISTORY: DIAGNOSIS: Malignant neoplasm of prostate [ICD10] C61 Stage SARINA, pT3b, N1 Eric score 9 adenocarcinoma the prostate status post robotic radical prostatectomy (04/22/2020). Extraprostatic extension present. Lymphovascular as well as perineural invasion present. Margins positive. Urinary bladder neck invasion present. Left seminal vesicle invasion present. Status post radiation therapy. patient is on Lupron, Zytiga and prednisone (06/10/2020?and stopped in April 2025). DATE OF DIAGNOSIS: 04/22/2020 STAGE/TNM: Stage SARINA, pT3b, N1 Eric score 9 adenocarcinoma the prostate status post robotic radical prostatectomy TREATMENT HISTORY: Care?Plan Start?Date Cycle Day Intent Lupron?22.5?mg?q?3?mon 09/02/2020 1 90 Palliative PROLia?60mg?every?6?months 01/01/2025 1 180 Palliative Reclast 01/17/2025 1 365 Palliative HISTORY OF PRESENT ILLNESS: Mr. Barger is here at [facility]. Labs from 11/01/2024 show PSA <0.10. Patient is receiving Lupron every 3 months, Zytiga taking Zytiga 250 mg daily and prednisone 5 mg daily. Patient has follow-up with neurologist on 11/07/2024 for complaints of dizziness and headaches for a long time. Denies any new complaints. Mr. Barger denies any cough or chest pain. HISTORY: Dirk Barger is a 64-year-old S[place] speaking male without any significant past medical history has the following oncology history. Patient recently had routine screening PSA done by Dr. Angela Nation. He was found to have an elevated PSA of 60. 04/22/2020: Patient had robotic radical prostatectomy with bilateral extended lymph node dissection at [facility] by Dr. Kvng Rich. Pathology showed stage Sarina Eric score 9 prostate cancer as described below. PSA trend: 06/09/2020: Less than 0.10. 08/13/2020: PSA less than 0.10. 06/09/2020?07/30/2020: Patient received 6840 cGy radiation to prostate. 06/10/2020: Patient received first Lupron 22.5 mg IM at [facility]. 06/16/2020: Patient is started on Zytiga and prednisone. 07/01/2020: Bone scan? x-ray of left shoulder?5 mm sclerotic focus in the left humeral neck. 12/01/2020: PSA less than 0.10. 12/04/2020: Patient received Eligard 22.5 mg subcu. 02/27/2021: PSA less than 0.10. 03/04/2021: Patient received Eligard 22.5 mg subcu. 05/20/2021: PSA less than 0.10 06/03/2021: Patient received Lupron 22.5 mg IM. 08/31/2021: PSA less than 0.10. 11/19/2021: PSA less than 0.10. 02/24/2021: PSA less than 0.10. 09/13/2022 PSA less than 0.00 03/23/2023: PSA less than 0.10. 09/14/2023: PSA less than 0.10. 02/01/2024: PSA less than 0.10. 02/16/2024: CT scan of the abdomen and pelvis with IV contrast 06/21/2024: PSA less than 0.10 08/01/2024: Bone scan? 08/10/2024: X-ray lumbar spine-negative for osteoblastic disease 08/17/2024: MRI left shoulder-no findings of osseous metastatic disease 11/05/2024: PSA less than 0.10 OTHER MEDICAL HISTORY/CONDITIONS: FAMILY HISTORY: SOCIAL HISTORY: MEDICATIONS: 1. Leydi - 30 mg 1 tab Daily 2. carbidopa-levodopa - tab Twice a Day 3. Flonase - 50 mcg/actuation As directed 4. omeprazole - 20 mg 1 Daily 5. TylenoL - 500 mg 1 Capsule As needed Medications Last Reconciled by Inessa Lazaro MA on 08/14/2025 ALLERGIES: No Known Allergies REVIEW OF SYSTEMS: A complete 14-point review of systems was performed and is negative except as noted in interval history. PHYSICAL EXAMINATION: VITAL SIGNS: Temperature?98, B/P?107/72, Oxygen?Saturation?97% Weight?199?lbs PAIN: 0 - No pain Neuro: Alert and oriented x 4 Conjunctiva white. Neck is supple. No adenopathy. Chest clear to auscultation. CVS rhythm regular. Abdomen is soft. No tenderness Extremities no clubbing . LABORATORY DATA: I have personally reviewed and interpreted each of the patient?s relevant lab tests, abnormal findings are below: Date 05/13/25 08/09/25 ??WHITE?BLOOD?COUNT?(Thou/mm3) 6.5 7.2 ??RED?BLOOD?COUNT?(Miln/mm3) 4.01?L 4.29?L ??HEMOGLOBIN?(gm/dl) 12.0?L 13.1?L ??HEMATOCRIT?(%) 35.1?L 38.4?L ??PLATELET?COUNT?(Thou/mm3) 247 254 ??NEUTROPHILS?%,?AUTO?(%) 68 68 ??LYMPH?%,?AUTO?(%) 20 21 ??NEUTROPHILS,?AUTO?(Thou/mm3) 4.4 4.9 ??GLUCOSE,RANDOM?(mg/dL) 101 99 ??BLOOD?UREA?NITROGEN?(mg/dL) 19 14 ??CREATININE?(mg/dL) 1.10 1.10 ??SODIUM?(mmol/L) 143 143 ??POTASSIUM?(mmol/L) 4.3 4.6 ??CHLORIDE?(mmol/L) 107 106 ??CrCl?(CandG)?(ml/min) 90.32 89.08 ??AST/SGOT?(Unit/L) 23 15 ??ALT/SGPT?(Unit/L) 9?L 14 ??ALKALINE?PHOSPHATASE?(Unit/L) 89 87 ??BILIRUBIN,?TOTAL?(mg/dL) 0.3 0.4 ??PROTEIN?TOTAL?(gm/dl) 6.1 6.6 ??ALBUMIN,?SERUM?(gm/dl) 4.0 4.2 ??GLOBULIN?(gm/dl) 2.1?L 2.4 ??ALBUMIN/GLOBULIN?RATIO 1.9 1.8 ??CALCIUM,?SERUM?(mg/dL) 9.1 9.9 ??CALCIUM?SERUM?(CORRECTED)?(mg/dL) 9.1 9.9 ASSESSMENT/PLAN: #1Stage SARINA, pT3b, N1 Eric score 9 adenocarcinoma the prostate status post robotic radical prostatectomy (04/22/2020). Extraprostatic extension present. Lymphovascular as well as perineural invasion present. Margins positive. Urinary bladder neck invasion present. Left seminal vesicle invasion present. Status post radiation therapy to the prostate bed as described above. Patient received Lupron 22.5 mg IMCT scan of the abdomen and pelvis with contrast was negative for metastatic disease. PSA is less than 0.10. Patient was on Lupron 22.5 mg every 3 months, Zytiga 250 mg p.o. daily as well as prednisone 5 mg p.o. daily..Mr. Barger stopped Zytiga and prednisone 3 weeks ago due to dizziness and fatigue. Patient's symptoms are persistent even after stopping the drugs Advised to follow-up with cardiology referral placed Will get echo and EKG done Advised to follow-up with primary care RTC with labs in 3 to 6 months PSA less than 0.01 ORDERS: Order # Description [id number] Comprehensive Metabolic Panel - 12 + CBC with Auto Diff [id number] Cardiology [id number] MD Follow Up 6 Month + PSA + CBC with Auto Diff + Comprehensive Metabolic Panel - 12 [id number] CBC + Comprehensive Metabolic Panel [id number] Lab Appointment [id number] CBC + Comprehensive Metabolic Panel [id number] Lab Appointment [id number] CBC + Comprehensive Metabolic Panel [id number] Lab Appointment [id number] CBC + Comprehensive Metabolic Panel [id number] Lab Appointment [id number] CBC + Comprehensive Metabolic Panel [id number] Lab Appointment RETURN TO CLINIC: I reviewed the diagnosis, prognosis, and recommended treatment/procedure options with the patient (and/or their legal in store marketing representative), including the potential benefits, risks, side effects and alternative therapies. We also discussed the option of no treatment and the possibility of clinical trial participation, if applicable. All questions were addressed, and they demonstrated understanding. They provided informed consent to proceed with the proposed plan of care. BILLING AND COMPLIANCE: I reviewed external records from providers outside my specialty as summarized above. I spent a total of 50 minutes on this patient?s care on the day of their visit excluding time spent related to any billed procedures. This time includes time spent with the patient as well as time spent documenting in the medical record, reviewing patients records and tests, obtaining history, placing orders, communicating with other healthcare professionals, counseling the patient, family or caregiver, and/or care coordination for the diagnoses above. Electronically Signed by: Ivan Parker MD T: 2:09 PM CC: Kavin?Rios? PCP: No Primary/family, Physician Referring: Ivan Parker This document was completed utilizing speech recognition software. Grammatical errors, random word insertions, pronoun errors, and incomplete sentences are an occasional consequence of this system due to software limitations, ambient noise, and hardware issues. Any formal questions or concerns about the content, text or information contained within the body of this dictation should be directly addressed to the provider for clarification.
== END 2025-08-27 23:59 | disposition home or self-care (01) ==
LOC: SCTC 10:49
PROVIDERS: Referring Provider Internal Medicine Hematology & Oncology; Visit Provider Internal Medicine Hematology & Oncology
DX: C61 Malignant neoplasm of prostate (principal); R42 Dizziness and giddiness; R53.83 Other fatigue; Z92.3 Personal history of irradiation; Z79.818 Long term (current) use of other agents affecting estrogen receptors and estrogen levels; Z90.79 Acquired absence of other genital organ(s)
CPT/HCPCS: 99213; G0463

== ENCOUNTER → 2025-09-01 | Outpatient (CLI) | payer BC, SELFPAY ==
--- NOTE | 2025-09-01 10:30 | ECHO_ITS ---
Transthoracic Echo Report Ht (in): 71 Wt (lb): 200 Exam Location: Echo Lab Status: Preadmit Commissioner Conservation Of Resources: Kaylyn Clement Indications: Procedure Performed: BP: 124 / 83 HR: Rhythm: Other Technical Quality: Fair MEASUREMENTS (Male / Female) Normal Values 2D ECHO LV Diastolic Diameter PLAX 4.8 cm 4.2 - 5.9 / 3.9 - 5.3 cm LV Systolic Diameter PLAX 3.2 cm IVS Diastolic Thickness 0.8 cm 0.6 - 1.0 / 0.6 - 0.9 cm LVPW Diastolic Thickness 0.8 cm 0.6 - 1.0 / 0.6 - 0.9 cm LV Relative Wall Thickness 0.3 LVOT Diameter 1.8 cm Aortic Root Diameter 3.2 cm LV Ejection Fraction MOD BP 53.4 % >= 55 % LV Ejection Fraction MOD 4C 55.3 % LV Ejection Fraction 4C AL 56.3 % LV Ejection Fraction MOD 2C 48.2 % LV Ejection Fraction 2C AL 49.5 % LA Volume Index 11.9 cm?/m? 16 - 28 cm?/m? M-MODE Aortic Root Diameter MM 2.9 cm LA Systolic Diameter MM 3.8 cm LA Ao Ratio MM 1.3 AV Cusp Separation MM 2.5 cm DOPPLER AV Peak Velocity 106.0 cm/s AV Peak Gradient 4.5 mmHg AV Mean Gradient 2.0 mmHg AV Velocity Time Integral 26.9 cm LVOT Peak Velocity 115.0 cm/s LVOT Peak Gradient 5.3 mmHg LVOT Velocity Time Integral 24.1 cm AV Area Cont Eq vti 2.3 cm? AV Area Cont Eq pk 2.8 cm? MV Area PHT 4.6 cm? MR Peak Velocity 329.0 cm/s MR Peak Gradient 43.3 mmHg Mitral E Point Velocity 74.7 cm/s Mitral A Point Velocity 70.3 cm/s Mitral E to A Ratio 1.1 LV E' Lateral Velocity 10.7 cm/s Mitral E to LV E' Lateral Ratio 7.0 LV E' Septal Velocity 10.0 cm/s Mitral E to LV E' Septal Ratio 7.5 TR Peak Velocity 239.0 cm/s TR Peak Gradient 22.8 mmHg PV Peak Velocity 113.0 cm/s PV Peak Gradient 5.1 mmHg FINDINGS Left Ventricle The left ventricular cavity size is normal. The left ventricular wall thicknesses are normal. The left ventricular ejection fraction is normal, estimated at 55%. Right Ventricle The right ventricular size is mildy increased with normal systolic function. Left Atrium The left atrium is normal by two-dimensional, color flow and Doppler imaging with no structural abnormalities, no thrombus formation present. Right Atrium The right atrium is normal by two-dimensional imaging, color flow and Doppler imaging with no structural abnormalities, no thrombus formation present. Atrial Septum The interatrial septum appears normal with no evidence of a shunt. Aorta The aorta is normal by two-dimensional, color flow and Doppler interrogation. Mitral Valve The mitral valve is normal by two-dimensional, color flow and Doppler interrogation. Mild mitral regurgitation. Aortic Valve The aortic valve is trileaflet and normal by two-dimensional, color flow and Doppler interrogation. There is no significant aortic valve regurgitation. Tricuspid Valve The tricuspid valve is normal by two-dimensional, color flow and Doppler interrogation. There is mild tricuspid valve regurgitation. Pulmonic Valve The pulmonic valve is not well visualized. Trivial pulmonic valve regurgitation. Vessels The pulmonary artery appears normal. The inferior vena cava pulmonary and hepatic veins appear normal. Pericardium The pericardium is normal by two-dimensional imaging. There is no significant pericardial effusion. CONCLUSIONS Indication: Malignant neoplasm of prostate The LV cavity size is normal and wall thicknesses. Estimated EF at 55%. Normal diastolic function The RV size is normal with normal systolic function. Mild MR and TR. Trivial PI. No pericardial effusion. Carl Yeager (Electronically Signed) Final Date: 01 September 2025 16:47
== END | disposition home or self-care (01) ==
LOC: SDIM 09-05 08:02
PROVIDERS: PCP Student in an Organized Health Care Education/Training Program; Referring Provider Internal Medicine Hematology & Oncology; Visit Provider Internal Medicine Hematology & Oncology
DX: I08.1 Rheumatic disorders of both mitral and tricuspid valves (principal); C61 Malignant neoplasm of prostate
CPT/HCPCS: 93306

== ENCOUNTER → 2025-09-10 | Outpatient (CLI) | payer BC, SELFPAY ==
--- NOTE | 2025-09-10 10:37 | XR_ITS ---
Examination: Venous duplex lower extremity sonogram, bilateral. Date and time of exam: September 10, 2025, 1109 hours INDICATIONS: Leg swelling beginning 1 year ago Technique: Multiple sonographic images of the deep venous system have been obtained. B-mode/2-D grayscale imaging of vascular structures and Doppler spectral analysis (waveforms) and color performed Both legs are examined. Findings: Deep venous systems do not demonstrate abnormal echogenicity. All visualized deep veins exhibit compressibility. All visualized deep veins exhibit augmentation. Impression: Negative for deep vein thrombosis
== END | disposition home or self-care (01) ==
LOC: CDIM 10:02
PROVIDERS: Referring Provider Internal Medicine Hematology & Oncology; Visit Provider Internal Medicine Hematology & Oncology
DX: R60.0 Localized edema (principal); C61 Malignant neoplasm of prostate
CPT/HCPCS: 93970